=== PATIENT | male | born 1975 ===

== ENCOUNTER 2018-06-18 09:47 | Emergency (ER) | payer SELFPAY ==
[~2018-06-18 09:47] MED LIST changes: -CARB-91 PO
--- NOTE | 2018-06-18 09:52 | ER Report ---
History and Physical Time Seen By MD: 09:52 HPI/ROS Patient presented on ED by police after he said he took an overdose of his home medications when police arrived at his house for a parole violation. No current complaints. Patient states that he does not mind going back to [facility], but endorses SI if sent home. He has also been drinking alcohol all weekend, which violates his parole. Allergies: Coded Allergies: No Known Drug Allergies (Unverified , 10/19/11) Home Meds Reported Medications Carbamazepine (CARBAMAZEPINE) 200 Mg Tablet, 800 MG PO QHS 06/18/18 Reviewed Nurses Notes: Yes Old Medical Records Reviewed: Yes Hx Smoking: No Hx Substance Use Disorder: No Hx Alcohol Use: Yes (5-6 OZWEEK) Constitutional Physical Exam GE: awake and alert in nad Head: NCAT, PERRL CV: RRR no m/r/g Lungs: cta b/l Abdomen: soft, NTND Neuro; sensation and strength grossly in tact Medical Decision Making Data Points Laboratory Hematology Test 06/18/18 10:00 Red Blood Count 5.43 M/uL (4.00-5.60) Mean Corpuscular Volume 90.3 fL (80.0-96.0) Mean Corpuscular Hemoglobin 31.0 pg (26.0-33.0) Mean Corpuscular Hemoglobin Concent 34.3 g/dL (32.0-36.0) Red Cell Distribution Width 14.7 % (11.5-14.5) Mean Platelet Volume 8.1 fL (7.2-11.1) Neutrophils (%) (Auto) 88.3 % (39.4-72.5) Lymphocytes (%) (Auto) 8.5 % (17.6-49.6) Monocytes (%) (Auto) 3.0 % (4.1-12.4) Eosinophils (%) (Auto) 0.0 % (0.4-6.7) Basophils (%) (Auto) 0.2 % (0.3-1.4) Nucleated RBC Relative Count (auto) 0.0 /100WBC Neutrophils # (Auto) 10.3 K/uL (2.0-7.4) Lymphocytes # (Auto) 1.0 K/uL (1.3-3.6) Monocytes # (Auto) 0.3 K/uL (0.3-1.0) Eosinophils # (Auto) 0.0 K/uL (0.0-0.5) Basophils # (Auto) 0.0 K/uL (0.0-0.1) Nucleated RBC Absolute Count (auto) 0.00 K/uL Sodium Level 142 mmol/L (137-145) Potassium Level 4.2 mmol/L (3.5-5.0) Chloride Level 110 mmol/L (98-107) Carbon Dioxide Level 18 mmol/L (22-30) Blood Urea Nitrogen 19 mg/dl (9-21) Creatinine 1.30 mg/dl (0.66-1.25) Glomerular Filtration Rate Calc > 60.0 Random Glucose 89 mg/dl (75-110) Calcium Level 8.7 mg/dl (8.4-10.2) Magnesium Level 1.6 mg/dl (1.7-2.2) Total Bilirubin 0.3 mg/dl (0.2-1.3) Aspartate Amino Transf (AST/SGOT) 33 U/L (0-35) Alanine Aminotransferase (ALT/SGPT) 41 U/L (0-56) Alkaline Phosphatase 59 U/L (0-126) Total Protein 6.8 g/dl (6.3-8.2) Albumin 4.4 g/dl (3.5-5.0) Thyroid Stimulating Hormone (TSH) 0.76 uIU/ml (0.46-4.68) Salicylates Level < 10 mg/L Salicylate Last Dose Date unk Acetaminophen Level < 10 ug/ml Carbamazepine (Tegretol) Level < 3.0 ug/ml Carbamazepine Time Since Last Dose 0900 Carbamazepine Last Dose Date today Serum Alcohol 162 mg/dl Chemistry Test 06/18/18 10:00 White Blood Count 11.7 k/uL (4.5-11.0) Red Blood Count 5.43 M/uL (4.00-5.60) Hemoglobin 16.8 g/dL (14.0-18.0) Hematocrit 49.0 % (42.0-52.0) Mean Corpuscular Volume 90.3 fL (80.0-96.0) Mean Corpuscular Hemoglobin 31.0 pg (26.0-33.0) Mean Corpuscular Hemoglobin Concent 34.3 g/dL (32.0-36.0) Red Cell Distribution Width 14.7 % (11.5-14.5) Platelet Count 265 K/uL (150-450) Mean Platelet Volume 8.1 fL (7.2-11.1) Neutrophils (%) (Auto) 88.3 % (39.4-72.5) Lymphocytes (%) (Auto) 8.5 % (17.6-49.6) Monocytes (%) (Auto) 3.0 % (4.1-12.4) Eosinophils (%) (Auto) 0.0 % (0.4-6.7) Basophils (%) (Auto) 0.2 % (0.3-1.4) Nucleated RBC Relative Count (auto) 0.0 /100WBC Neutrophils # (Auto) 10.3 K/uL (2.0-7.4) Lymphocytes # (Auto) 1.0 K/uL (1.3-3.6) Monocytes # (Auto) 0.3 K/uL (0.3-1.0) Eosinophils # (Auto) 0.0 K/uL (0.0-0.5) Basophils # (Auto) 0.0 K/uL (0.0-0.1) Nucleated RBC Absolute Count (auto) 0.00 K/uL Glomerular Filtration Rate Calc > 60.0 Calcium Level 8.7 mg/dl (8.4-10.2) Magnesium Level 1.6 mg/dl (1.7-2.2) Total Bilirubin 0.3 mg/dl (0.2-1.3) Aspartate Amino Transf (AST/SGOT) 33 U/L (0-35) Alanine Aminotransferase (ALT/SGPT) 41 U/L (0-56) Alkaline Phosphatase 59 U/L (0-126) Total Protein 6.8 g/dl (6.3-8.2) Albumin 4.4 g/dl (3.5-5.0) Thyroid Stimulating Hormone (TSH) 0.76 uIU/ml (0.46-4.68) Salicylates Level < 10 mg/L Salicylate Last Dose Date unk Acetaminophen Level < 10 ug/ml Carbamazepine (Tegretol) Level < 3.0 ug/ml Carbamazepine Time Since Last Dose 0900 Carbamazepine Last Dose Date today Serum Alcohol 162 mg/dl Toxicology Test 1/27/19 10:00 Salicylates Level < 10 mg/L Salicylate Last Dose Date unk Acetaminophen Level < 10 ug/ml Carbamazepine (Tegretol) Level < 3.0 ug/ml Carbamazepine Time Since Last Dose 0900 Carbamazepine Last Dose Date today Serum Alcohol 162 mg/dl ED Course/Re-evaluation ED Course After extensive conversation with law enforcement, patient would be best served in custody of law enforcement under strict watch. [facility] DA called, and is amenable to plan. Patient amenable to plan. Will d/c in care of PD Decision to Disposition Date: Jun 18, 2018 Decision to Disposition Time: 13:35 Depart Departure Latest Vital Signs Impression: Primary Impression: Adjustment disorder Condition: Improved Disposition: HOME OR SELF-CARE Referrals: MANJEET MAGUIRE (PCP) Patient Instructions: Depression (ED) Problem Qualifiers Primary Impression: Adjustment disorder Adjustment disorder type: with anxious mood Qualified Codes: F43.22 - Adjustment disorder with anxiety JAEL HSU MD Jun 18, 2018 09:52
[2018-06-18] MEDS ORDERED: NS(*) 0.9% 1000 ML BAG 1,000 ML IV ONE ×2 (10:17→10:18)
[2018-06-18 10:27] LABS: PLATELET COUNT, AUTOMATED 265 K/uL (150-450)
--- NOTE | 2018-06-18 12:24 | EKG ---
FACILITY: [facility] [place] PATIENT NAME: NAIDA FERRO : [id number] MR: [id number] V: [id number] EXAM DATE: ORDERING PHYSICIAN: JAEL HSU TECHNOLOGIST: Test Reason : PSYCH Blood Pressure : / mmHG Vent. Rate : 112 BPM Atrial Rate : 112 BPM P-R Int : 128 ms QRS Dur : 082 ms QT Int : 338 ms P-R-T Axes : 062 057 045 degrees QTc Int : 461 ms Sinus tachycardia Otherwise normal ECG When compared with ECG of 13-JUN-2013 23:54, No significant change was found Confirmed by Alistair Mcneill ([id number]) on 06/18/2018 10:48:06 PM Referred By: Confirmed By:Alistair Clarke
[2018-06-18] MEDS ORDERED: CARB-91 PO (13:18)
[2018-06-18] MEDS ORDERED: ONDANSETRON 4 MG/2 ML VIAL IVP ONE (13:25)
[2018-06-18 13:30] VITALS: BP 121/66
--- NOTE | 2018-06-18 13:38 | BHS - Psychiatric Evaluation ---
ER - Title 25 MHE Evaluation Title 25 Evaluation Patient Detained By: Law Enforcement Referral Source: mortgage loan officer Date Patient Detained: Jun 18, 2018 Time Patient Detained: 09:37 Date Penitentiary Expires: Jun 21, 2018 Time Penitentiary Expires: 10:00 Legal Status: Police Hold: Yes Legal Status: Residence: [facility] Resident Assessment Data Provided By: Patient, Law Enforcement HPI/ROS: On probation for alcohol use. Used alcohol this weekend. When mortgage loan officer came to home, pt. "overdosed" on his medication in a suicide attempt. Pt. states he is depressed about his life events. Admit due to SI or Attempt: Yes Suicide Plan: Has Plan with Access Alcohol or Drugs Involved: Yes Is Patient Info Reliable: No Is Collateral Info Reliable: Yes Mental Status Exam General Appearance: Tearful Speech: Other Mood: Dysthmic/Depressed Affect: Calm, Sad Thought Process: Organized Thought Content: Suicidal Ideation Sensorium: Other Memory: Immediate Sleep: Normal Hallucinations: Denies Delusions: Denies Current Risk & History Current Dangerous Risk Assessm: Current Suicide Ideation Past Dangerous Risk Assessm: Suicide Ideation-last 6mo Previous Suicide Attempt: Past - Low Lethality Previous Psychiatric Illness: Yes Previous Psychiatric Treatment: Yes Risk Assessment & Disposition Evaluated Risk Assessment: Seen by psychiatric team. Spoke with police officers, psychiatric team, and patient as well as DA. Patient will go to [facility] for his probation violation, and team knows he has vague suicide thoughts. Will monitor him closely, and have him seen by mental health providers. Patient amenable to plan. Contracts for safety under this plan. Impression: Primary Impression: Adjustment disorder Meets Mental Illness Req.: Yes Meets Dangerousness Req.: No Emergency Penitentiary to be: Lifted Date of Decision: Jun 18, 2018 Time of Decision: 13:37 Patient is Medically Stable at: Yes Disposition: Discharge w/ Safety Plan Problem Qualifiers Primary Impression: Adjustment disorder Adjustment disorder type: with depressed mood Qualified Codes: F43.21 - Adjustment disorder with depressed mood JAEL HSU MD Jun 18, 2018 13:38
== END 2018-06-18 13:52 ==
LOC: ER 10:01
DX: F43.22 Adjustment disorder with anxiety (principal); F43.21 Adjustment disorder with depressed mood; R00.0 Tachycardia, unspecified
CPT/HCPCS: 80156; 80320; 80329; 83735; 84443; 85025; 93005; 96361; 96374; 99284; J2405; J7030; 82040; 82247; 82310; 82374; 82435; 82565; 82947; 84075; 84132; 84155; 84295; 84450; 84460; 84520

== ENCOUNTER → 2018-06-18 | Outpatient (CLI) | payer SELFPAY ==
[~2018-06-18] MED LIST: CARB-91 PO; PER PO
== END ==
LOC: AMB 09:31
PROVIDERS: ATTEND Nurse Practitioner
DX: T40.4X2A Poisoning by other synthetic narcotics, intentional self-harm, initial encounter (principal); F10.120 Alcohol abuse with intoxication, uncomplicated
CPT/HCPCS: A0425; A0427